=== PATIENT | female | born 1940 | race Asian ===

== ENCOUNTER 2019-07-26 16:29 | Emergency (ER) | payer MEDICARE, MEDICAID ==
[~2019-07-26] VITALS: Ht 154.9 cm; Wt 61.7 kg
[2019-07-26 16:32] VITALS: BP_SYST 155
--- NOTE | 2019-07-26 16:35 | NUR ---
Patient triaged and placed in waiting room. VSS and patient appears in no acute distress at this time. Accompanied by self, awaiting available bed, and MD notified of need for MSE.
--- NOTE | 2019-07-26 19:55 | NUR ---
Patient to ER bed 07 for evaluation. Side rails up.
--- NOTE | 2019-07-26 19:55 | NUR ---
Pt wheeled to bed 7 for evaluation
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
--- NOTE | 2019-07-26 20:29 | NUR ---
ER at bedside examining patient.
[2019-07-26] MEDS ORDERED: ACETAMINOPHEN 325 MG TABLET PO ONE (20:30)
--- NOTE | 2019-07-26 20:41 | NUR ---
Pt taken to radiology via gurney in stable condition
--- NOTE | 2019-07-26 21:04 | NUR ---
Pt given tylenol 650mg PO.
[2019-07-26 21:47] VITALS: BP_SYST 146
--- NOTE | 2019-07-26 21:47 | NUR ---
Patient given written and verbal discharge instructions and verbalizes understanding. ER MD Al discussed with patient the results and treatment provided. Patient in stable condition. ID arm band removed. No Rx given. Patient educated on pain management and to follow up with PMD. Pain Scale 0. Opportunity for questions provided and answered. Medication side effect fact sheet provided.
== END 2019-07-26 21:47 | disposition home or self-care (01) ==
LOC: SED 16:29
DX: S13.4XXA Sprain of ligaments of cervical spine, initial encounter (principal); S33.5XXA Sprain of ligaments of lumbar spine, initial encounter; I10 Essential (primary) hypertension; J45.909 Unspecified asthma, uncomplicated; V49.59XA Passenger injured in collision with other motor vehicles in traffic accident, initial encounter; Y93.89 Activity, other specified; Y92.89 Other specified places as the place of occurrence of the external cause; Y99.8 Other external cause status
CPT/HCPCS: 72125-TC; 72170-TC; 99284

== ENCOUNTER 2021-06-26 13:15 | Emergency (ER) | payer OTHER, MEDICAID ==
[~2021-06-26] VITALS: Ht 152.4 cm; Wt 59.9 kg
[2021-06-26 13:42] VITALS: BP_SYST 155
--- NOTE | 2021-06-26 14:00 | NUR ---
Patient triaged and placed in waiting room. VSS and patient appears in no acute distress at this time. Accompanied by daughter , awaiting available bed, and MD notified of need for MSE.
--- NOTE | 2021-06-26 14:10 | NUR ---
Pt brought by self, A&Ox4, pt presents to ER with vaginal bleeding/mild cramping since this am, VSS, skin pink and warm, cap refill <3, VSS, respirations even and unlabored.
--- NOTE | 2021-06-26 14:30 | NUR ---
Dr Carcamo evaluating patient at bedside
[2021-06-26 15:34] LABS: BILIRUBIN,URINE NEGATIVE (NEGATIVE); BLOOD, URINE 2+ (NEGATIVE); CLARITY/URINE CLEAR (CLEAR); COLOR,URINE YELLOW (YELLOW); GLUCOSE,URINE NEGATIVE (NEGATIVE); KETONES,URINE NEGATIVE (NEGATIVE); LEUKOCYTE ESTERASE ,URINE 1+ (NEGATIVE); NITRITE, URINE NEGATIVE (NEGATIVE); PROTEIN URINE NEGATIVE (NEGATIVE); UROBILINOGEN,URINE 0.2 (0.2-1.0)
[2021-06-26 16:17] LABS: BASOPHILS # (AUTO) 0.1 K/uL (0.0-0.2); BASOPHILS % (AUTO) 0.6 % (0.0-2.0); EOSINOPHILS # (AUTO) 0.1 K/uL (0.0-0.4); EOSINOPHILS % (AUTO) 0.6 % (0.0-4.0); HEMATOCRIT 41.1 % (36-48); HEMOGLOBIN 13.7 g/dL (12.0-16.0); LYMPHOCYTES # (AUTO) 2.2 K/uL (1.0-5.5); LYMPHOCYTES % (AUTO) 22.6 % (20.5-51.5); MEAN CORPUSCULAR HEMOGLOBIN 32 pg (27-31); MEAN CORPUSCULAR HGB CONC 33 % (32-36); MEAN CORPUSCULAR VOLUME 96 fL (79.0-98.0); NEUTROPHILS # (AUTO) 6.4 K/uL (1.8-7.7); NEUTROPHILS % (AUTO) 66.2 % (40.0-70.0); PLATELET COUNT (AUTO) 221 K/uL (130-430); RED BLOOD CELL COUNT(AUTO) 4.27 MIL/uL (4.2-6.2); RED CELL DISTRIBUTION WIDTH 12.7 % (9.0-15.0); WHITE BLOOD COUNT (AUTO) 9.6 K/uL (4.8-10.8)
[2021-06-26 16:25] LABS: BACTERIA,URINE FEW /HPF (None Seen)
[2021-06-26 16:26] LABS: MUCUS,URINE None Seen /LPF (None Seen)
[2021-06-26 16:29] LABS: ANION GAP 10 (5-15); CALCIUM 9.3 mg/dL (8.4-11.0); CHLORIDE 103 mmol/L (98-107); CREATININE 0.76 mg/dL (0.55-1.30); GLUCOSE 88 mg/dL (70-99); POTASSIUM 3.7 mmol/L (3.5-5.1); SODIUM SERUM 142 mmol/L (136-145); UREA NITROGEN, BLOOD 9 mg/dL (8-21)
[2021-06-26 16:32] LABS: PROTHROMBIN TIME 9.9 SECS (9.5-12.5)
[2021-06-26 16:35] LABS: ALANINE AMINOTRANSFERASE 26 U/L (12-78); ALBUMIN 3.8 g/dL (3.4-4.8); ASPARTATE AMINOTRANSFERASE 16 U/L (10-37); TOTAL BILIRUBIN 0.8 mg/dL (0.0-1.0)
[2021-06-26 17:11] VITALS: BP_SYST 155
--- NOTE | 2021-06-26 17:12 | NUR ---
Patient given written and verbal discharge instructions and verbalizes understanding. ER MD discussed with patient the results and treatment provided. Patient in stable condition. ID arm band removed. No Rx given. Patient educated on pain management and to follow up with PMD. Pain Scale 0/10. Opportunity for questions provided and answered. Medication side effect fact sheet provided.
== END 2021-06-26 17:11 | disposition home or self-care (01) ==
LOC: SED 13:15
DX: N93.9 Abnormal uterine and vaginal bleeding, unspecified (principal); J45.909 Unspecified asthma, uncomplicated; I10 Essential (primary) hypertension
CPT/HCPCS: 36415; 76830-TC; 76857; 80053; 81000; 85025; 85610-TC; 85730-TC; 87086; 99284

== ENCOUNTER 2021-10-10 17:11 | Emergency (ER) | payer OTHER, MEDICAID ==
[~2021-10-10] VITALS: Ht 152.4 cm; Wt 61.7 kg
[2021-10-10 17:29] VITALS: BP_SYST 146
[2021-10-10] MEDS ORDERED: MORPHINE 2 MG/ML INJ. SYRINGE IM ONE (21:30)
[2021-10-10] MEDS ORDERED: ACETAMINOPHEN 500 MG TABLET PO ONE (21:45)
[2021-10-10 21:54] VITALS: BP_SYST 137
[2021-10-10] MEDS ORDERED: LIDOCAINE PATCH 5% 1 EA TP ONE ×3 (23:42→23:45)
[2021-10-10] MEDS ORDERED: LIDO1ADH77 TP (23:44)
== END 2021-10-10 23:41 | disposition home or self-care (01) ==
LOC: SED 17:11
DX: S70.01XA Contusion of right hip, initial encounter (principal); R51.9 Headache, unspecified; W01.0XXA Fall on same level from slipping, tripping and stumbling without subsequent striking against object, initial encounter; Y93.89 Activity, other specified; Y92.098 Other place in other non-institutional residence as the place of occurrence of the external cause; Y99.8 Other external cause status
CPT/HCPCS: 70450-TC; 72125-TC; 72192-TC; 73521; 76376; 99284